=== PATIENT | female | born 1970 | race Caucasian/White ===

== ENCOUNTER 2018-05-11 20:06 | Emergency (ER) | payer MEDICAID ==
--- NOTE | 2018-05-11 20:17 | ER Report ---
History and Physical Time Seen By MD: 20:15 Hx. of Stated Complaint: PATIENT REPORTS A LONG HISTORY OF DENTAL PAIN. SHE JUST MOVED TO [facility] AND DOES NOT HAVE A DENTIST HPI/ROS CHIEF COMPLAINT: Dental pain-right upper molars HISTORY OF PRESENT ILLNESS: Patient is a 48-year-old female here with complaints of right upper molar dental pain which has been ongoing for some time. Patient has poor dentition and had planned on having her teeth removed in [place] however now since she had moved she does not have insurance to do so. She is in the process of transferring her insurance to have her teeth removed and a denture placed. Patient reports worsening pain, foul odor in her mouth, difficulty chewing. She does have caries present in the right upper teeth. She is taking [id number] medications without relief of symptoms. Patient denies fevers, chills, chest pain, shortness breath, difficulty swallowing. REVIEW OF SYSTEMS: Constitutional: No fever, no chills. Eyes: No discharge. ENT: + poor dentition, foul odor of the mouth Cardiovascular: No chest pain, no palpitations. Respiratory: No cough, no shortness of breath. Gastrointestinal: No abdominal pain, no vomiting. Genitourinary: No hematuria. Musculoskeletal: No back pain. Skin: No rashes. Neurological: No headache. Allergies: Coded Allergies: ibuprofen (Verified Allergy, Unknown, 05/11/18) Home Meds Active Scripts Penicillin V Potassium 500 Mg Tab (PENICILLIN V POTASSIUM 500 MG TAB) 500 Mg Tablet, 500 MG PO QID for 7 Days, #28 TAB Prov:LAILA CORBIN DO 05/11/18 Hx Substance Use Disorder: No Hx Alcohol Use: No Constitutional Vital Sign - Last 24 Hours 05/11/18 05/11/18 20:11 20:56 Temp 98.6 Pulse 96 89 Resp 20 B/P (MAP) 118/71 138/87 (104) Pulse Ox 95 O2 Delivery Room Air Physical Exam General Appearance: The patient is alert, has no immediate need for airway protection and no signs of toxicity. NAD Eyes: Pupils equal and round no pallor or injection. ENT, Mouth: Mucous membranes are moist, + carries and necrotic teeth of upper right molars Respiratory: There are no retractions, lungs are clear to auscultation. Neurological: No focal neurological deficits Skin: Warm and dry, no rashes. Musculoskeletal: Neck is supple non tender. DIFFERENTIAL DIAGNOSIS: After history and physical exam differential diagnosis was considered for caries, dental abscess, necrotic teeth, gingivitis Medical Decision Making ED Course/Re-evaluation ED Course Patient is a 40-year-old female here with poor dentition, dental pain, dental abscess with plans for dental extraction. Patient reports having issues with insurance which has delayed her dental procedures since she moved from [place]. Patient reports worsening pain in the interim while she waits for her dental procedure. I performed a dental block using approximately 5 mL of bupivacaine of the superior alveolar nerve and local dental block. Patient received Toradol IM for analgesia and her 1st dose of penicillin for antimicrobial coverage. Patient was given a prescription for penicillin and advised to follow-up with dentistry for dental extraction and further procedures. Patient voiced understanding. Decision to Disposition Date: May 11, 2018 Decision to Disposition Time: 20:49 Depart Departure Latest Vital Signs Vital Signs Date Time Temp Pulse Resp B/P (MAP) Pulse Ox O2 Delivery O2 Flow Rate FiO2 05/11/18 20:56 89 138/87 (104) 05/11/18 20:11 98.6 20 95 Room Air Impression: Primary Impression: Pain, dental Condition: Improved Disposition: HOME OR SELF-CARE New Scripts Penicillin V Potassium 500 Mg Tab (PENICILLIN V POTASSIUM 500 MG TAB) 500 Mg Tablet 500 MG PO QID for 7 Days, #28 TAB Prov: LAILA CORBIN DO 05/11/18 Patient Instructions: Dental Abscess (ED) Additional Instructions: Please follow-up with dentistry in the next week for evaluation of dental removal. Please take penicillin 1 tablet 4 times a day for 7 days for dental infection. You may take Tylenol up to 3 g daily as needed for pain control. Please return promptly if you develop worsening pain, fevers, difficulty swallowing, facial swelling. LAILA CORBIN DO May 11, 2018 20:17
[2018-05-11] MEDS ORDERED: traMADol 50 MG TAB TH 2 TAB/BOTTLE PO ONE (20:40)
[2018-05-11] MEDS ORDERED: KETOROLAC 60 MG/2 ML VIAL IM ONE (20:40)
[2018-05-11] MEDS ORDERED: PENI-24 PO (20:42)
[2018-05-11 20:56] VITALS: BP 138/87
[2018-05-11] MEDS ORDERED: PENICILLIN VK 250 MG TAB PO SCH (21:00)
== END 2018-05-11 20:58 | disposition home or self-care (01) ==
LOC: ER 20:20
DX: K08.89 Other specified disorders of teeth and supporting structures (principal)
CPT/HCPCS: 96372; 99283; C9399; J1885